=== PATIENT | male | born 1985 | race Caucasian/White ===

== ENCOUNTER 2018-04-27 13:36 | Day surgery (SDC) | payer OTHER ==
[~2018-04-27] VITALS: Ht 188 cm; Wt 128.7 kg
== END 2018-04-27 15:27 | disposition home or self-care (01) ==
LOC: ORSCSDS 13:36
PROVIDERS: Surgery
PROC: 0DJD8ZZ Inspection of Lower Intestinal Tract, Via Natural or Artificial Opening Endoscopic (ICD-10-PCS; principal; 2018-04-27 14:45)
DX: K62.5 Hemorrhage of anus and rectum (principal); K64.1 Second degree hemorrhoids; E66.9 Obesity, unspecified; Z68.37 Body mass index [BMI] 37.0-37.9, adult
CPT/HCPCS: J7120